=== PATIENT | male | born 1975 | race Caucasian/White ===

== ENCOUNTER 2017-12-26 17:42 | Observation (INO) | payer OTHER ==
[~2017-12-26] VITALS: Ht 162.6 cm; Wt 68.0 kg
[~2017-12-26 17:42] MED LIST: CITA20TA9 PO; GABA600T2 PO; PROP20TA PO; TRAZ50TA18 PO
[2017-12-26] MEDS ORDERED: HYDR-3342 PO (18:18)
[2017-12-26] MEDS ORDERED: ZIPRASIDONE 20 MG INJ IM ONE ×2 (18:27→18:30)
[2017-12-26 18:45] LABS: MEAN CORPUSCULAR HEMOGLOBIN 30.5 pg (27.5-34.5); MEAN CORPUSCULAR HGB CONC 33.7 g/dL (33.2-36.2); MEAN CORPUSCULAR VOLUME 90.7 fL (81-97); PLATELET COUNT 303 x10^3/uL (130-400); RED BLOOD COUNT 5.16 x10^6/uL (4.38-5.82); RED CELL DISTRIBUTION WIDTH 12.7 % (9.4-14.8)
[2017-12-26 18:56] LABS: ACETAMINOPHEN < 2 mcg/mL (10-30); ALBUMIN 4.2 g/dL (3.4-5.0); ANION GAP 10 mmol/L (5-15); CALCIUM 8.8 mg/dL (8.5-10.1); CHLORIDE 106 mmol/L (98-107); CREATININE 0.88 mg/dL (0.7-1.3); SALICYLATE LEVEL < 1.7 mg/dL (2.8-20.0)
[2017-12-26 19:18] LABS: BASOPHILS # (AUTO) 0.05 x10^3/uL (0-0.1); BASOPHILS % (AUTO) 0 % (0-1); EOSINOPHILS # (AUTO) 0.12 x10^3/uL (0-0.4); EOSINOPHILS % (AUTO) 1 % (1-7); LYMPHOCYTES # (AUTO) 3.17 x10^3/uL (1-3.4); LYMPHOCYTES % (AUTO) 17 % (22-44); MD SCAN; MONOCYTES # (AUTO) 1.14 x10^3/uL (0.2-0.8); MONOCYTES % (AUTO) 6 % (2-9); NEUTROPHILS % (AUTO) 76 % (42-75)
[2017-12-26 23:25] LABS: AMPHETAMINE SCREEN, URINE Positive (Negative); BARBITURATE SCREEN, URINE Negative (Negative); BENZODIAZEPINE SCREEN, URINE Negative (Negative); CANNABINOID SCREEN, URINE Positive (Negative); COCAINE SCREEN, URINE Negative (Negative); METHADONE SCREEN, URINE Negative (Negative); OPIATE SCREEN, URINE Negative (Negative)
[2017-12-27] MEDS ORDERED: ZIPRASIDONE 20MG CAPSULE PO PRN (00:30)
[2017-12-27] MEDS ORDERED: DIPHENHYDRAMINE 50 MG CAPSULE PO PRN (00:30)
[2017-12-27] MEDS ORDERED: ZIPRASIDONE 20MG CAPSULE ONE (07:01)
[2017-12-27] MEDS: ZIPRASIDONE 20 MG INJ IM SCH ×2 (07:05→20:47)
[2017-12-27] MEDS ORDERED: LORazepam 1MG TABLET PO ONE (16:00)
[2017-12-27] MEDS ORDERED: LORazepam 1MG TABLET ONE (16:07)
[2017-12-27] MEDS ORDERED: LORazepam 0.5MG TABLET PO PRN (16:30)
[2017-12-27] MEDS ORDERED: ZIPRASIDONE 20 MG INJ IM ONE (20:39)
[2017-12-28 05:09] LABS: BASOPHILS # (AUTO) 0.07 x10^3/uL (0-0.1); BASOPHILS % (AUTO) 1 % (0-1); EOSINOPHILS # (AUTO) 0.25 x10^3/uL (0-0.4); EOSINOPHILS % (AUTO) 3 % (1-7); LYMPHOCYTES # (AUTO) 3.19 x10^3/uL (1-3.4); LYMPHOCYTES % (AUTO) 32 % (22-44); MD NO; MEAN CORPUSCULAR VOLUME 91.2 fL (81-97); MEAN PLATELET VOLUME 8.1 fL (7.4-10.4); MONOCYTES # (AUTO) 0.75 x10^3/uL (0.2-0.8); MONOCYTES % (AUTO) 8 % (2-9); NEUTROPHILS # (AUTO) 5.67 x10^3/uL (1.8-6.8); NEUTROPHILS % (AUTO) 57 % (42-75); PLATELET COUNT 259 x10^3/uL (130-400); RED BLOOD COUNT 5.04 x10^6/uL (4.38-5.82); RED CELL DISTRIBUTION WIDTH 13.1 % (9.4-14.8)
[2017-12-28 05:14] LABS: ALBUMIN 3.6 g/dL (3.4-5.0); ANION GAP 3 mmol/L (5-15); CALCIUM 8.6 mg/dL (8.5-10.1); CHLORIDE 109 mmol/L (98-107)
[2017-12-28 05:19] LABS: ALANINE AMINOTRANSFERASE 22 U/L (12-78); ALKALINE PHOSPHATASE 89 U/L (45-117); BILIRUBIN,TOTAL 0.6 mg/dL (0.2-1.0); TOTAL PROTEIN 6.8 g/dL (6.4-8.2)
[2017-12-28] MEDS ORDERED: ZIPRASIDONE 20MG CAPSULE ONE ×2 (07:26→23:46)
[2017-12-28] MEDS: ZIPRASIDONE 20 MG INJ IM SCH (07:30)
[2017-12-28] MEDS ORDERED: DOCUSATE 100 MG CAPSULE ONE (07:51)
[2017-12-28] MEDS: DOCUSATE 100 MG CAPSULE PO PRN (07:53)
[2017-12-28] MEDS ORDERED: NICOTINE 21 MG/24 HR PATCH.TD24 TD SCH (12:00)
[2017-12-28] MEDS ORDERED: NICOTINE 21 MG/24 HR PATCH.TD24 ONE (12:02)
[2017-12-28] MEDS ORDERED: LORazepam 0.5MG TABLET ONE ×2 (12:03→18:03)
[2017-12-28] MEDS ORDERED: LORazepam 0.5MG TABLET PO PRN (14:30)
[2017-12-28] MEDS ORDERED: hydrOXyzine 50MG TABLET PO PRN (16:30)
[2017-12-28] MEDS ORDERED: hydrOXyzine 50MG TABLET ONE (18:03)
[2017-12-28] MEDS: LORazepam 0.5MG TABLET PO PRN (18:16)
[2017-12-28] MEDS: hydrOXyzine 50MG TABLET PO PRN (18:16)
[2017-12-28] MEDS ORDERED: ZIPRASIDONE 20 MG INJ IM PRN (23:00)
[2017-12-28] MEDS: ZIPRASIDONE 20MG CAPSULE PO SCH (23:49)
[2017-12-29] MEDS ORDERED: NICOTINE 21 MG/24 HR PATCH.TD24 ONE (08:33)
[2017-12-29] MEDS ORDERED: ZIPRASIDONE 20MG CAPSULE ONE ×2 (08:34→20:24)
[2017-12-29] MEDS: ZIPRASIDONE 20MG CAPSULE PO SCH ×2 (08:52→20:27)
[2017-12-29] MEDS: NICOTINE 21 MG/24 HR PATCH.TD24 TD SCH (08:52)
[2017-12-29] MEDS ORDERED: hydrOXyzine 50MG TABLET ONE ×2 (11:59→20:23)
[2017-12-29] MEDS ORDERED: LORazepam 0.5MG TABLET ONE ×2 (12:00→17:19)
[2017-12-29] MEDS: hydrOXyzine 50MG TABLET PO PRN ×2 (12:01→20:27)
[2017-12-29] MEDS: LORazepam 0.5MG TABLET PO PRN ×2 (12:01→17:21)
[2017-12-29] MEDS ORDERED: IBUPROFEN 200 MG TABLET ONE (17:19)
[2017-12-29] MEDS ORDERED: ACETAMINOPHEN 325 MG TABLET ONE (17:19)
[2017-12-29] MEDS: IBUPROFEN 200 MG TABLET PO PRN (17:21)
[2017-12-29] MEDS: ACETAMINOPHEN 325 MG TABLET PO PRN (17:21)
[2017-12-29] MEDS ORDERED: TEMAZEPAM 15 MG CAPSULE ONE (20:24)
[2017-12-29] MEDS: TEMAZEPAM 15 MG CAPSULE PO PRN (20:28)
[2017-12-30] MEDS ORDERED: LORazepam 0.5MG TABLET ONE ×3 (07:52→19:22)
[2017-12-30] MEDS: LORazepam 0.5MG TABLET PO PRN ×3 (07:55→19:39)
[2017-12-30] MEDS ORDERED: NICOTINE 21 MG/24 HR PATCH.TD24 ONE (08:26)
[2017-12-30] MEDS ORDERED: ZIPRASIDONE 20MG CAPSULE ONE ×2 (08:26→19:22)
[2017-12-30] MEDS: ZIPRASIDONE 20MG CAPSULE PO SCH ×2 (08:29→19:39)
[2017-12-30] MEDS: NICOTINE 21 MG/24 HR PATCH.TD24 TD SCH (08:30)
[2017-12-30] MEDS ORDERED: IBUPROFEN 200 MG TABLET ONE (08:31)
[2017-12-30] MEDS: IBUPROFEN 200 MG TABLET PO PRN (08:32)
[2017-12-30] MEDS ORDERED: hydrOXyzine 50MG TABLET ONE ×2 (12:54→19:22)
[2017-12-30] MEDS ORDERED: ZIPRASIDONE 20 MG INJ IM ONE (12:54)
[2017-12-30] MEDS: hydrOXyzine 50MG TABLET PO PRN ×2 (13:01→19:39)
[2017-12-30] MEDS ORDERED: TEMAZEPAM 15 MG CAPSULE ONE (21:06)
[2017-12-30] MEDS: TEMAZEPAM 15 MG CAPSULE PO PRN (21:30)
[2017-12-31 02:43] VITALS: BP 105/72
[2017-12-31 07:39] VITALS: BP 105/72
[2017-12-31] MEDS: NICOTINE 21 MG/24 HR PATCH.TD24 TD SCH (08:05)
[2017-12-31] MEDS: ZIPRASIDONE 20MG CAPSULE PO SCH ×2 (08:05→20:29)
[2017-12-31] MEDS: IBUPROFEN 200 MG TABLET PO PRN ×2 (08:05→20:40)
[2017-12-31] MEDS: hydrOXyzine 50MG TABLET PO PRN (13:37)
[2017-12-31] MEDS: ACETAMINOPHEN 325 MG TABLET PO PRN (13:37)
[2017-12-31] MEDS: GABAPENTIN 300 MG CAPSULE PO SCH ×2 (15:21→20:29)
[2017-12-31] MEDS: LORazepam 0.5MG TABLET PO PRN (18:22)
[2017-12-31 19:05] VITALS: BP 107/75
[2017-12-31] MEDS: DOCUSATE 100 MG CAPSULE PO PRN (20:40)
[2018-01-01] MEDS: ACETAMINOPHEN 325 MG TABLET PO PRN ×2 (06:20→20:35)
[2018-01-01 07:18] VITALS: BP 103/66
[2018-01-01] MEDS: LORazepam 0.5MG TABLET PO PRN (07:33)
[2018-01-01] MEDS: GABAPENTIN 300 MG CAPSULE PO SCH ×3 (08:07→20:26)
[2018-01-01] MEDS: ZIPRASIDONE 20MG CAPSULE PO SCH ×2 (08:07→20:25)
[2018-01-01] MEDS: NICOTINE 21 MG/24 HR PATCH.TD24 TD SCH (08:08)
[2018-01-01] MEDS: DOCUSATE 100 MG CAPSULE PO PRN (12:35)
[2018-01-01] MEDS: IBUPROFEN 200 MG TABLET PO PRN (14:18)
[2018-01-01] MEDS: hydrOXyzine 50MG TABLET PO PRN (14:18)
[2018-01-01 15:11] LABS: BASOPHILS # (AUTO) 0.05 x10^3/uL (0-0.1); BASOPHILS % (AUTO) 1 % (0-1); EOSINOPHILS # (AUTO) 0.21 x10^3/uL (0-0.4); EOSINOPHILS % (AUTO) 2 % (1-7); LYMPHOCYTES # (AUTO) 3.12 x10^3/uL (1-3.4); LYMPHOCYTES % (AUTO) 35 % (22-44); MD NO; MEAN CORPUSCULAR HEMOGLOBIN 30.3 pg (27.5-34.5); MEAN CORPUSCULAR HGB CONC 33.6 g/dL (33.2-36.2); MEAN CORPUSCULAR VOLUME 90.4 fL (81-97); MEAN PLATELET VOLUME 8.2 fL (7.4-10.4); MONOCYTES # (AUTO) 0.48 x10^3/uL (0.2-0.8); MONOCYTES % (AUTO) 5 % (2-9); NEUTROPHILS # (AUTO) 5.02 x10^3/uL (1.8-6.8); NEUTROPHILS % (AUTO) 57 % (42-75); PLATELET COUNT 286 x10^3/uL (130-400); RED BLOOD COUNT 5.26 x10^6/uL (4.38-5.82); RED CELL DISTRIBUTION WIDTH 13.2 % (9.4-14.8)
[2018-01-01 19:43] VITALS: BP 109/74
[2018-01-01] MEDS: TEMAZEPAM 15 MG CAPSULE PO PRN (20:26)
[2018-01-02] MEDS: ACETAMINOPHEN 325 MG TABLET PO PRN ×2 (06:29→14:27)
[2018-01-02 07:59] VITALS: BP 101/70
[2018-01-02] MEDS: GABAPENTIN 300 MG CAPSULE PO SCH ×3 (08:56→20:35)
[2018-01-02] MEDS: NICOTINE 21 MG/24 HR PATCH.TD24 TD SCH (08:57)
[2018-01-02] MEDS: hydrOXyzine 50MG TABLET PO PRN ×2 (09:00→14:27)
[2018-01-02] MEDS: DOCUSATE 100 MG CAPSULE PO PRN (10:34)
[2018-01-02 20:21] VITALS: BP 130/85
[2018-01-02] MEDS: ZIPRASIDONE 20MG CAPSULE PO SCH (20:35)
[2018-01-02] MEDS: TRAZODONE 100MG TABLET PO SCH (20:35)
[2018-01-03] MEDS: ACETAMINOPHEN 325 MG TABLET PO PRN (06:17)
[2018-01-03 07:20] VITALS: BP 99/70
[2018-01-03] MEDS: hydrOXyzine 50MG TABLET PO PRN (07:49)
[2018-01-03] MEDS: ZIPRASIDONE 20MG CAPSULE PO SCH ×2 (09:22→20:34)
[2018-01-03] MEDS: GABAPENTIN 300 MG CAPSULE PO SCH ×3 (09:22→20:34)
[2018-01-03] MEDS: NICOTINE 21 MG/24 HR PATCH.TD24 TD SCH (09:23)
[2018-01-03] MEDS: LORazepam 0.5MG TABLET PO PRN (12:31)
[2018-01-03] MEDS: IBUPROFEN 200 MG TABLET PO PRN (12:31)
[2018-01-03] MEDS: TRAZODONE 100MG TABLET PO SCH (20:34)
[2018-01-03 20:57] VITALS: BP 99/65
[2018-01-04 07:42] VITALS: BP 110/79
[2018-01-04] MEDS: ZIPRASIDONE 20MG CAPSULE PO SCH ×2 (08:34→21:15)
[2018-01-04] MEDS: GABAPENTIN 300 MG CAPSULE PO SCH ×3 (08:34→21:15)
[2018-01-04] MEDS: NICOTINE 21 MG/24 HR PATCH.TD24 TD SCH (08:35)
[2018-01-04] MEDS: IBUPROFEN 200 MG TABLET PO PRN ×2 (08:43→14:29)
[2018-01-04] MEDS: hydrOXyzine 50MG TABLET PO PRN ×2 (08:43→14:29)
[2018-01-04 20:36] VITALS: BP 132/75
[2018-01-04] MEDS: TRAZODONE 100MG TABLET PO SCH (21:14)
[2018-01-04] MEDS: LORazepam 0.5MG TABLET PO PRN (21:15)
[2018-01-05] MEDS: IBUPROFEN 200 MG TABLET PO PRN ×2 (06:04→15:46)
[2018-01-05 07:54] VITALS: BP 101/75
[2018-01-05] MEDS: ZIPRASIDONE 20MG CAPSULE PO SCH ×2 (08:17→20:36)
[2018-01-05] MEDS: hydrOXyzine 50MG TABLET PO PRN ×2 (08:17→12:20)
[2018-01-05] MEDS: GABAPENTIN 300 MG CAPSULE PO SCH ×3 (08:17→20:36)
[2018-01-05] MEDS: NICOTINE 21 MG/24 HR PATCH.TD24 TD SCH (08:18)
[2018-01-05 19:39] VITALS: BP 109/69
[2018-01-05] MEDS: TRAZODONE 100MG TABLET PO SCH (20:36)
[2018-01-05] MEDS: LORazepam 0.5MG TABLET PO PRN (20:36)
[2018-01-06] MEDS: IBUPROFEN 200 MG TABLET PO PRN ×2 (06:12→13:36)
[2018-01-06 07:55] VITALS: BP 111/76
[2018-01-06] MEDS: ZIPRASIDONE 20MG CAPSULE PO SCH ×2 (08:08→20:47)
[2018-01-06] MEDS: GABAPENTIN 300 MG CAPSULE PO SCH ×3 (08:08→20:47)
[2018-01-06] MEDS: hydrOXyzine 50MG TABLET PO PRN ×2 (08:08→13:35)
[2018-01-06] MEDS: NICOTINE 21 MG/24 HR PATCH.TD24 TD SCH (08:09)
[2018-01-06] MEDS: INDOMETHACIN 25 MG CAPSULE PO SCH ×3 (14:19→20:47)
[2018-01-06 19:34] VITALS: BP 110/79
[2018-01-06] MEDS: LORazepam 0.5MG TABLET PO PRN (20:47)
[2018-01-06] MEDS: TRAZODONE 100MG TABLET PO SCH (20:47)
[2018-01-07] MEDS: hydrOXyzine 50MG TABLET PO PRN ×2 (04:25→11:02)
[2018-01-07] MEDS: IBUPROFEN 200 MG TABLET PO PRN (05:26)
[2018-01-07 08:04] VITALS: BP 105/77
[2018-01-07] MEDS: INDOMETHACIN 25 MG CAPSULE PO SCH ×2 (08:10→16:00)
[2018-01-07] MEDS: NICOTINE 21 MG/24 HR PATCH.TD24 TD SCH (08:11)
[2018-01-07] MEDS: ZIPRASIDONE 20MG CAPSULE PO SCH (08:11)
[2018-01-07] MEDS: GABAPENTIN 300 MG CAPSULE PO SCH ×2 (08:11→16:00)
== END 2018-01-07 17:04 | disposition home or self-care (01) ==
LOC: ED 21:50 → INTOOBSV 22:49 → EDIP 22:49 → 2N 12-31 02:40
PROVIDERS: ADMIT Internal Medicine; ATTEND Internal Medicine
DX: F23 Brief psychotic disorder (principal); F22 Delusional disorders; R45.851 Suicidal ideations; F31.9 Bipolar disorder, unspecified; D72.829 Elevated white blood cell count, unspecified; F15.90 Other stimulant use, unspecified, uncomplicated; K59.00 Constipation, unspecified; F17.200 Nicotine dependence, unspecified, uncomplicated; Z59.0 Homelessness
CPT/HCPCS: 36415; 71045; 80048; 80053; 80307; 80329; 82040; 85025; 99285; G0378; J3486; G0480

== ENCOUNTER 2018-09-23 21:03 | Emergency (ER) | payer MEDICAID, OTHER ==
[~2018-09-23] VITALS: Ht 165.1 cm; Wt 89.0 kg
[~2018-09-23 21:03] MED LIST changes: +HYDR-3342 PO; +TRAZ-136 PO; -TRAZ50TA18 PO
[2018-09-23 21:15] VITALS: BP 111/77
[2018-09-23] MEDS ORDERED: DIVA500T2 PO (21:37)
[2018-09-23 21:39] LABS: BASOPHILS # (AUTO) 0.04 x10^3/uL (0-0.1); BASOPHILS % (AUTO) 0 % (0-1); EOSINOPHILS # (AUTO) 0.05 x10^3/uL (0-0.4); EOSINOPHILS % (AUTO) 0 % (1-7); LYMPHOCYTES # (AUTO) 2.63 x10^3/uL (1-3.4); LYMPHOCYTES % (AUTO) 22 % (22-44); MD NO; MEAN CORPUSCULAR HGB CONC 34.6 g/dL (33.2-36.2); MEAN CORPUSCULAR VOLUME 89.5 fL (81-97); MEAN PLATELET VOLUME 7.5 fL (7.4-10.4); MONOCYTES # (AUTO) 0.99 x10^3/uL (0.2-0.8); MONOCYTES % (AUTO) 8 % (2-9); NEUTROPHILS # (AUTO) 8.19 x10^3/uL (1.8-6.8); NEUTROPHILS % (AUTO) 69 % (42-75); PLATELET COUNT 235 x10^3/uL (130-400); RED BLOOD COUNT 5.44 x10^6/uL (4.38-5.82); RED CELL DISTRIBUTION WIDTH 12.8 % (9.4-14.8)
[2018-09-23] MEDS ORDERED: BUPR100T7 PO (21:39)
[2018-09-23] MEDS ORDERED: HYDR50TA13 PO (21:39)
[2018-09-23] MEDS ORDERED: OLAN20TA7 PO (21:40)
[2018-09-23 21:44] LABS: ALBUMIN 4.3 g/dL (3.4-5.0); ANION GAP 12 mmol/L (5-15); CALCIUM 9.1 mg/dL (8.5-10.1); CHLORIDE 111 mmol/L (98-107); CREATININE 1.07 mg/dL (0.7-1.3); SALICYLATE LEVEL 3.7 mg/dL (2.8-20.0)
[2018-09-23 21:45] LABS: ACETAMINOPHEN < 2 mcg/mL (10-30)
[2018-09-23 21:56] LABS: AMPHETAMINE SCREEN, URINE Negative (Negative); BARBITURATE SCREEN, URINE Negative (Negative); BENZODIAZEPINE SCREEN, URINE Negative (Negative); CANNABINOID SCREEN, URINE Positive (Negative); COCAINE SCREEN, URINE Negative (Negative); METHADONE SCREEN, URINE Negative (Negative); OPIATE SCREEN, URINE Negative (Negative)
== END 2018-09-24 00:29 | disposition home or self-care (01) ==
LOC: ED 23:05
DX: F41.1 Generalized anxiety disorder (principal); F32.9 Major depressive disorder, single episode, unspecified
CPT/HCPCS: 36415; 80048; 80307; 80329; 82040; 85025; 99284; G0480